=== PATIENT | female | born 1990 | race African-American/Black ===

== ENCOUNTER 2019-09-05 22:56 | Emergency (ER) | payer MEDICAID ==
[~2019-09-05] VITALS: Ht 160 cm; Wt 67.1 kg
[~2019-09-05 22:56] MED LIST: IRON PILLS
[2019-09-05 23:14] VITALS: BP 109/50
== END 2019-09-06 01:07 | disposition home or self-care (01) ==
LOC: ER 22:56
DX: H66.92 Otitis media, unspecified, left ear (principal)
CPT/HCPCS: 81025; 99283

== ENCOUNTER 2019-10-05 17:54 | Emergency (ER) | payer MEDICAID ==
[~2019-10-05] VITALS: Ht 160 cm; Wt 65.9 kg
[2019-10-05] MEDS ORDERED: MAGNESIUM/ALUMINUM HYDROXIDE/SIMETHICONE 30ML UDC PO STA (19:49)
[2019-10-05 19:56] LABS: BASOPHILS % 0.6 % (0.0-2.0); EOSINOPHILS % 0.6 % (0.0-5.0); HEMOGLOBIN. 11.8 g/dL (12.0-16.0); MEAN CORPUSCULAR HEMOGLOBIN 28.1 pg (28.0-32.0); MEAN CORPUSCULAR VOLUME 85.7 fL (81.0-99.0); MEAN PLATELET VOLUME 8.7 fl (7.4-10.4); MONOCYTES % 10.9 % (2.0-8.0); NEUTROPHILS % 66.9 % (40.0-76.0); PLATELET 314 x1000/uL (130-400); RED CELL DISTRIBUTION WIDTH 16.3 % (11.6-14.6)
[2019-10-05 20:04] LABS: CHLORIDE 103 mEq/L (98-107)
[2019-10-05] MEDS ORDERED: POTASSIUM CHLORIDE 20MEQ TABLET SR PO ONE (21:45)
[2019-10-05] MEDS ORDERED: ONDANSETRON 4MG ODT PO ONE (22:30)
[2019-10-05] MEDS ORDERED: SODIUM CHLORIDE 0.9% 1,000 ML IV ONE (22:45)
[2019-10-05] MEDS ORDERED: ACETAMINOPHEN 325MG TABLET PO ONE (22:45)
[2019-10-06] MEDS ORDERED: METOCLOPRAMIDE HCL 10MG/2ML VIAL IV ONE (00:15)
[2019-10-06 00:32] VITALS: BP 106/60
== END 2019-10-06 00:34 | disposition home or self-care (01) ==
LOC: ER 17:54
DX: O26.891 Other specified pregnancy related conditions, first trimester (principal); R10.0 Acute abdomen; O21.1 Hyperemesis gravidarum with metabolic disturbance; R03.0 Elevated blood-pressure reading, without diagnosis of hypertension; Z3A.01 Less than 8 weeks gestation of pregnancy
CPT/HCPCS: 36415; 76801; 80053; 81025; 83690; 84702; 85025; 96361; 96374; 99284; J2765; J7030; Q0162